=== PATIENT | female | born 1980 | race Caucasian/White ===

== ENCOUNTER 2016-11-09 09:12 | Emergency (ER) | payer MEDICAID ==
[~2016-11-09] VITALS: Ht 165.1 cm; Wt 82.0 kg
[2016-11-09 09:15] VITALS: BP 127/90
== END 2016-11-09 10:15 | disposition home or self-care (01) ==
LOC: ED 09:40
DX: K02.9 Dental caries, unspecified (principal)
CPT/HCPCS: 99283

== ENCOUNTER 2016-12-31 17:37 | Emergency (ER) | payer MEDICAID ==
[~2016-12-31] VITALS: Ht 165.1 cm; Wt 84.9 kg
[2016-12-31] MEDS ORDERED: SODIUM CHLORIDE FLUSH 10ML SYR IVF ONE (18:30)
[2016-12-31] MEDS ORDERED: ONDANSETRON 2MG/ML, 2ML IVPush ONE ×2 (18:30→19:30)
[2016-12-31] MEDS ORDERED: FAMOTIDINE 20 MG/2 ML IVP ONE (18:30)
[2016-12-31] MEDS ORDERED: SODIUM CHLORIDE 0.9% 1,000ML IVBOLUS ONE ×2 (18:30→20:00)
[2016-12-31] MEDS ORDERED: FAMOTIDINE 20 MG/2 ML ONE (18:36)
[2016-12-31] MEDS ORDERED: ONDANSETRON 2MG/ML, 2ML ONE ×2 (18:36→19:22)
[2016-12-31 18:39] LABS: HEMOGLOBIN 15.3 g/dL (11.7-16.4); WHITE BLOOD COUNT 10.6 x10^3/uL (3.4-10)
[2016-12-31 18:49] LABS: ASPARTATE AMINO TRANSFERASE 56 U/L (15-37); BLOOD UREA NITROGEN 6 mg/dL (7-18)
[2016-12-31] MEDS ORDERED: HYDROmorphone 1 MG/ML, 1ML ONE ×2 (19:22→20:56)
[2016-12-31] MEDS: HYDROmorphone 1 MG/ML, 1ML IVPush PRN ×2 (19:37→21:00)
[2016-12-31] MEDS ORDERED: PROMETHAZINE 25 MG/ML, 1ML IM ONE (20:00)
[2016-12-31] MEDS ORDERED: PANTOPRAZOLE 40 MG IV IVPush ONE (20:00)
[2016-12-31] MEDS ORDERED: PROMETHAZINE 25 MG/ML, 1ML ONE (20:09)
[2016-12-31] MEDS ORDERED: PANTOPRAZOLE 40 MG IV ONE (20:09)
[2016-12-31 22:04] VITALS: BP 118/82
== END 2016-12-31 22:39 | disposition home or self-care (01) ==
LOC: ED 18:24
DX: K29.20 Alcoholic gastritis without bleeding (principal); F17.200 Nicotine dependence, unspecified, uncomplicated; Z90.49 Acquired absence of other specified parts of digestive tract; Z88.6 Allergy status to analgesic agent; Z88.5 Allergy status to narcotic agent
CPT/HCPCS: 36415; 80053; 81001; 83690; 84703; 85025; 93005; 96365; 96366; 96372; 96375; 96376; 99285; C9113; J1170; J2405; J2550; J7030; S0028

== ENCOUNTER 2017-04-23 12:21 | Emergency (ER) | payer MEDICAID ==
[~2017-04-23] VITALS: Ht 165.1 cm; Wt 80.4 kg
[2017-04-23 12:24] VITALS: BP 135/85
[2017-04-23] MEDS ORDERED: HYDROcodone/APAP 5/325 TABLET PO ONE (13:30)
[2017-04-23] MEDS ORDERED: HYDROcodone/APAP 5/325 TABLET ONE (13:33)
== END 2017-04-23 14:04 | disposition home or self-care (01) ==
LOC: ED 14:00
DX: S20.212A Contusion of left front wall of thorax, initial encounter (principal); W22.8XXA Striking against or struck by other objects, initial encounter; Y93.01 Activity, walking, marching and hiking; Y92.89 Other specified places as the place of occurrence of the external cause; Y99.8 Other external cause status
CPT/HCPCS: 71020; 99284

== ENCOUNTER 2017-05-17 17:48 | Emergency (ER) | payer MEDICAID | END 2017-05-17 18:51 | LOC: ED 18:45 | DX: R10.9 Unspecified abdominal pain (principal); Z53.21 Procedure and treatment not carried out due to patient leaving prior to being seen by health care provider ==

== ENCOUNTER 2017-10-06 16:42 | Inpatient (IN) | payer MEDICAID ==
[~2017-10-06] VITALS: Ht 165.1 cm; Wt 85.8 kg
[~2017-10-06 16:42] MED LIST: OMEP-110 PO
[2017-10-06 18:04] LABS: MEAN CORPUSCULAR HEMOGLOBIN 36.1 pg (27.0-34.8); MEAN CORPUSCULAR VOLUME 105.9 fL (80-100); MEAN PLATELET VOLUME 7.6 fL (7.4-10.4); PLATELET COUNT 335 x10^3/uL (130-400); RED BLOOD COUNT 3.21 x10^6/uL (3.82-5.3)
[2017-10-06 18:15] LABS: ALANINE AMINOTRANSFERASE 36 U/L (12-78); ALBUMIN 1.7 g/dL (3.4-5.0); ANION GAP 5 mmol/L (5-15); CALCIUM 7.8 mg/dL (8.5-10.1); CHLORIDE 100 mmol/L (98-107); CREATININE 0.66 mg/dL (0.55-1.02)
[2017-10-06 18:20] LABS: ALKALINE PHOSPHATASE 297 U/L (45-117); BILIRUBIN,TOTAL 13.9 mg/dL (0.2-1.0); TOTAL PROTEIN 7.5 g/dL (6.4-8.2)
[2017-10-06 18:27] LABS: MD YES
[2017-10-06 18:30] LABS: BAND#(MANUAL) 6.53 x10^3/uL; BANDS%(MANUAL) 24 % (0-7); EOS#(MANUAL) 0.27 x10^3/uL (0.0-0.4); EOS% (MANUAL) 1 % (1-7); LYMPH#(MANUAL) 1.09 x10^3/uL (1-3.4); LYMPHS% (MANUAL) 4 % (22-44); MONOS#(MANUAL) 1.63 x10^3/uL (0.3-2.7); MONOS% (MANUAL) 6 % (2-9); SEG#(MANUAL) 17.68 x10^3/uL (1.8-6.8); SEGS% (MANUAL) 65 % (42-75)
[2017-10-06 18:32] LABS: POLYCHROMASIA 1+
[2017-10-06 18:33] LABS: TARGET CELLS 1+
[2017-10-06 18:34] LABS: TOXIC GRAN 1+
[2017-10-06 18:35] LABS: <PLATELET ESTIMATE> ADEQUATE; <PLT MORPHOLOGY> NORMAL PLT MORPH
[2017-10-06] MEDS ORDERED: OMNIPAQUE 350 MG/ML, 100ML BOTTLE ONE (19:46)
[2017-10-06] MEDS ORDERED: PROMETHAZINE 25 MG/ML, 1ML ONE (20:00)
[2017-10-06] MEDS ORDERED: SODIUM CHLORIDE 0.9% 1,000ML IVBOLUS ONE ×2 (20:00→21:30)
[2017-10-06] MEDS ORDERED: HYDROmorphone 2 MG/ML, 1ML ONE ×2 (20:00→21:24)
[2017-10-06] MEDS ORDERED: SODIUM CHLORIDE FLUSH 10ML SYR IVF ONE (20:00)
[2017-10-06] MEDS ORDERED: PROMETHAZINE 25 MG/ML, 1ML IM ONE (20:00)
[2017-10-06] MEDS: HYDROmorphone 1 MG/ML, 1ML IVPush PRN ×2 (20:12→21:38)
[2017-10-06 20:57] LABS: CULTURE INDICATED? YES; MICROSCOPIC INDICATED
[2017-10-06] MEDS ORDERED: PIPERACILLIN/TAZO/PMX 3.375GM 50 ML IVPB ONE (21:30)
[2017-10-06] MEDS ORDERED: PIPERACILLIN/TAZO/PMX 3.375GM 50 ML ONE (21:42)
[2017-10-06] MEDS ORDERED: SODIUM CHLORIDE 0.9% 1,000 ML IV ONE (22:03)
[2017-10-06 22:23] LABS: ACETAMINOPHEN < 2 mcg/mL (10-30)
[2017-10-06] MEDS ORDERED: SODIUM CHLORIDE FLUSH 10ML SYR IVF PRN (22:30)
[2017-10-06 22:48] LABS: INTERNATIONAL NORMALIZED RATIO 1.89 (0.93-1.1); PROTHROMBIN TIME 19.4 Seconds (9.6-11.5)
[2017-10-06] MEDS ORDERED: ONDANSETRON 2MG/ML, 2ML IVPush PRN (23:30)
[2017-10-06] MEDS ORDERED: BISACODYL 10 MG SUPP PR PRN (23:30)
[2017-10-06] MEDS ORDERED: POLYETHYLENE GLYCOL 17 GM PACKET PO PRN (23:30)
[2017-10-06 23:50] LABS: BILIRUBIN,INDIRECT 2.2 mg/dL (0.0-2.0)
[2017-10-07 00:02] LABS: BILIRUBIN, DIRECT 10.8 mg/dL (0.1-0.2)
[2017-10-07 00:28] VITALS: BP 115/68
[2017-10-07 01:05] VITALS: BP 106/69
[2017-10-07] MEDS: CEFTRIAXONE PMX 2GM/50ML 50 ML IV SCH (03:49)
[2017-10-07] MEDS: SODIUM CHLORIDE FLUSH 10ML SYR IVF SCH ×3 (03:57→21:35)
[2017-10-07] MEDS ORDERED: ONDANSETRON ODT 4 MG PO PRN (04:00)
[2017-10-07] MEDS ORDERED: HYDROmorphone 1 MG/ML, 1ML IM PRN (04:30)
[2017-10-07] MEDS ORDERED: HYDROmorphone 2 MG/ML, 1ML ONE ×4 (04:35→20:46)
[2017-10-07] MEDS: D5%-0.45% NACL 1,000 ML IV SCH ×2 (04:43→17:50)
[2017-10-07] MEDS: PROMETHAZINE 25 MG/ML, 1ML IM PRN ×3 (04:44→20:17)
[2017-10-07] MEDS: HYDROmorphone 1 MG/ML, 1ML IV PRN ×4 (04:48→20:49)
[2017-10-07 06:09] LABS: INTERNATIONAL NORMALIZED RATIO 2.07 (0.93-1.1); PROTHROMBIN TIME 21.2 Seconds (9.6-11.5)
[2017-10-07 06:17] LABS: CALCIUM 7.1 mg/dL (8.5-10.1); CHLORIDE 102 mmol/L (98-107)
[2017-10-07 06:20] LABS: MEAN CORPUSCULAR HEMOGLOBIN 36.1 pg (27.0-34.8); MEAN CORPUSCULAR HGB CONC 34.1 g/dL (32.4-35.8); MEAN CORPUSCULAR VOLUME 105.7 fL (80-100); RED BLOOD COUNT 2.79 x10^6/uL (3.82-5.3); RED CELL DISTRIBUTION WIDTH 18.9 % (9.6-15.2)
[2017-10-07 06:21] LABS: MEAN PLATELET VOLUME 8.6 fL (7.4-10.4); PLATELET COUNT 265 x10^3/uL (130-400)
[2017-10-07 06:23] LABS: ALANINE AMINOTRANSFERASE 30 U/L (12-78); ALBUMIN 1.5 g/dL (3.4-5.0); ALKALINE PHOSPHATASE 242 U/L (45-117); ANION GAP 8 mmol/L (5-15); BILIRUBIN,TOTAL 12.2 mg/dL (0.2-1.0); CREATININE 0.53 mg/dL (0.55-1.02); TOTAL PROTEIN 6.5 g/dL (6.4-8.2)
[2017-10-07 07:04] LABS: MD YES
[2017-10-07 07:05] LABS: BASOS#(MANUAL) 0.29 x10^3/uL (0-0.1); BASOS% (MANUAL) 1 % (0-1); EOS#(MANUAL) 0.29 x10^3/uL (0.0-0.4); EOS% (MANUAL) 1 % (1-7); MONOS#(MANUAL) 1.44 x10^3/uL (0.3-2.7); MONOS% (MANUAL) 5 % (2-9)
[2017-10-07 07:06] LABS: BAND#(MANUAL) 4.88 x10^3/uL; BANDS%(MANUAL) 17 % (0-7); LYMPH#(MANUAL) 0.57 x10^3/uL (1-3.4); LYMPHS% (MANUAL) 2 % (22-44); METAMYELOCYTES# (MANUAL) 0.29 x10^3/uL (0-0); METAMYELOCYTES% (MANUAL) 1 % (0-1); POLYCHROMASIA 1+; SEG#(MANUAL) 20.95 x10^3/uL (1.8-6.8); SEGS% (MANUAL) 73 % (42-75)
[2017-10-07 07:07] LABS: ANISOCYTOSIS 1+; TOXIC GRAN 1+
[2017-10-07 07:08] LABS: <PLATELET ESTIMATE> ADEQUATE; <PLT MORPHOLOGY> NORMAL PLT MORPH
[2017-10-07 08:30] VITALS: BP 99/62
[2017-10-07] MEDS: FOLIC ACID 1 MG TABLET PO SCH (09:56)
[2017-10-07] MEDS: SENNA/DOCUSATE TABLET PO SCH (09:57)
[2017-10-07 15:48] VITALS: BP 103/58
[2017-10-07 17:30] LABS: MEAN CORPUSCULAR HEMOGLOBIN 35.9 pg (27.0-34.8); MEAN CORPUSCULAR HGB CONC 33.7 g/dL (32.4-35.8); MEAN CORPUSCULAR VOLUME 106.6 fL (80-100); MEAN PLATELET VOLUME 8.4 fL (7.4-10.4); PLATELET COUNT 310 x10^3/uL (130-400); RED BLOOD COUNT 2.84 x10^6/uL (3.82-5.3); RED CELL DISTRIBUTION WIDTH 19.4 % (9.6-15.2)
[2017-10-07 17:50] LABS: MD YES
[2017-10-07 17:53] LABS: ANISOCYTOSIS 1+; BANDS%(MANUAL) 20 % (0-7); EOS#(MANUAL) 0.26 x10^3/uL (0.0-0.4); EOS% (MANUAL) 1 % (1-7); LYMPH#(MANUAL) 1.02 x10^3/uL (1-3.4); LYMPHS% (MANUAL) 4 % (22-44); METAMYELOCYTES# (MANUAL) 0.26 x10^3/uL (0-0); METAMYELOCYTES% (MANUAL) 1 % (0-1); MONOS#(MANUAL) 0.77 x10^3/uL (0.3-2.7); MONOS% (MANUAL) 3 % (2-9); MYELOCYTES# (MANUAL) 0.26 x10^3/uL (0-0); MYELOCYTES% (MANUAL) 1 % (0-0); SEG#(MANUAL) 17.85 x10^3/uL (1.8-6.8); SEGS% (MANUAL) 70 % (42-75)
[2017-10-07 17:54] LABS: POLYCHROMASIA 1+; TOXIC GRAN 1+
[2017-10-07 17:55] LABS: <PLATELET ESTIMATE> ADEQUATE; <PLT MORPHOLOGY> NORMAL PLT MORPH; TARGET CELLS 1+
[2017-10-07 18:52] LABS: AMPHETAMINE SCREEN, URINE Negative (Negative); BARBITURATE SCREEN, URINE Negative (Negative); BENZODIAZEPINE SCREEN, URINE Negative (Negative); CANNABINOID SCREEN, URINE Negative (Negative); COCAINE SCREEN, URINE Negative (Negative); METHADONE SCREEN, URINE Negative (Negative); OPIATE SCREEN, URINE Positive (Negative)
[2017-10-07 19:06] VITALS: BP 102/68
[2017-10-07] MEDS: AZITHROMYCIN 500 MG in SODIUM CHLORIDE 0.9% 250 ML IV SCH (19:31)
[2017-10-08 00:57] VITALS: BP 95/61
[2017-10-08] MEDS ORDERED: HYDROmorphone 2 MG/ML, 1ML ONE ×5 (02:40→22:10)
[2017-10-08] MEDS: CEFTRIAXONE PMX 2GM/50ML 50 ML IV SCH (02:51)
[2017-10-08] MEDS: HYDROmorphone 1 MG/ML, 1ML IV PRN ×5 (02:51→22:15)
[2017-10-08 05:39] LABS: MEAN CORPUSCULAR HEMOGLOBIN 36.2 pg (27.0-34.8); MEAN CORPUSCULAR VOLUME 106.6 fL (80-100); MEAN PLATELET VOLUME 7.7 fL (7.4-10.4); PLATELET COUNT 305 x10^3/uL (130-400); RED CELL DISTRIBUTION WIDTH 18.6 % (9.6-15.2)
[2017-10-08 05:50] LABS: ALANINE AMINOTRANSFERASE 34 U/L (12-78); ALBUMIN 1.3 g/dL (3.4-5.0); ANION GAP 7 mmol/L (5-15); CHLORIDE 104 mmol/L (98-107); CREATININE 0.44 mg/dL (0.55-1.02)
[2017-10-08 05:52] LABS: ALKALINE PHOSPHATASE 231 U/L (45-117); BILIRUBIN,TOTAL 10.7 mg/dL (0.2-1.0)
[2017-10-08 06:05] LABS: MD YES
[2017-10-08 06:06] LABS: LYMPH#(MANUAL) 1.35 x10^3/uL (1-3.4); LYMPHS% (MANUAL) 5 % (22-44); MONOS#(MANUAL) 0.81 x10^3/uL (0.3-2.7); MONOS% (MANUAL) 3 % (2-9)
[2017-10-08 06:08] LABS: BAND#(MANUAL) 3.78 x10^3/uL; BANDS%(MANUAL) 14 % (0-7); SEG#(MANUAL) 21.06 x10^3/uL (1.8-6.8); SEGS% (MANUAL) 78 % (42-75)
[2017-10-08 06:09] LABS: ANISOCYTOSIS 1+; POLYCHROMASIA 1+; TOXIC GRAN 1+
[2017-10-08 06:10] LABS: <PLATELET ESTIMATE> ADEQUATE; <PLT MORPHOLOGY> NORMAL PLT MORPH
[2017-10-08 06:48] LABS: INTERNATIONAL NORMALIZED RATIO 2.29 (0.93-1.1); PROTHROMBIN TIME 23.4 Seconds (9.6-11.5)
[2017-10-08] MEDS: D5%-0.45% NACL 1,000 ML IV SCH ×2 (06:54→20:55)
[2017-10-08 08:12] VITALS: BP 100/64
[2017-10-08] MEDS: SODIUM CHLORIDE FLUSH 10ML SYR IVF SCH ×2 (08:26→21:00)
[2017-10-08] MEDS: SENNA/DOCUSATE TABLET PO SCH (08:26)
[2017-10-08] MEDS: FOLIC ACID 1 MG TABLET PO SCH (08:26)
[2017-10-08] MEDS: PROMETHAZINE 25 MG/ML, 1ML IM PRN (08:27)
[2017-10-08] MEDS: prednisOLONE 15 MG/5 ML ORAL SOLN PO SCH (10:38)
[2017-10-08 15:50] VITALS: BP 101/65
[2017-10-08] MEDS: AZITHROMYCIN 500 MG in SODIUM CHLORIDE 0.9% 250 ML IV SCH (20:56)
[2017-10-08 21:01] VITALS: BP 99/63
[2017-10-09] MEDS ORDERED: HYDROmorphone 2 MG/ML, 1ML ONE ×5 (02:18→21:34)
[2017-10-09] MEDS: HYDROmorphone 1 MG/ML, 1ML IV PRN ×5 (02:19→21:42)
[2017-10-09] MEDS: CEFTRIAXONE PMX 2GM/50ML 50 ML IV SCH (02:20)
[2017-10-09 02:24] VITALS: BP 94/63
[2017-10-09 05:25] LABS: MEAN CORPUSCULAR HEMOGLOBIN 35.7 pg (27.0-34.8); MEAN CORPUSCULAR HGB CONC 33.9 g/dL (32.4-35.8); MEAN CORPUSCULAR VOLUME 105.1 fL (80-100); MEAN PLATELET VOLUME 7.7 fL (7.4-10.4); PLATELET COUNT 349 x10^3/uL (130-400); RED BLOOD COUNT 2.97 x10^6/uL (3.82-5.3); RED CELL DISTRIBUTION WIDTH 18.6 % (9.6-15.2)
[2017-10-09 05:34] LABS: ALBUMIN 1.3 g/dL (3.4-5.0); ANION GAP 6 mmol/L (5-15); CALCIUM 6.9 mg/dL (8.5-10.1); CHLORIDE 107 mmol/L (98-107)
[2017-10-09 05:39] LABS: ALANINE AMINOTRANSFERASE 36 U/L (12-78); ALKALINE PHOSPHATASE 245 U/L (45-117); BILIRUBIN,TOTAL 10.1 mg/dL (0.2-1.0); TOTAL PROTEIN 6.1 g/dL (6.4-8.2)
[2017-10-09 05:47] LABS: MD YES
[2017-10-09 05:48] LABS: BAND#(MANUAL) 5.36 x10^3/uL; BANDS%(MANUAL) 14 % (0-7); LYMPH#(MANUAL) 3.45 x10^3/uL (1-3.4); LYMPHS% (MANUAL) 9 % (22-44); MONOS#(MANUAL) 1.15 x10^3/uL (0.3-2.7); MONOS% (MANUAL) 3 % (2-9); MYELOCYTES# (MANUAL) 0.77 x10^3/uL (0-0); MYELOCYTES% (MANUAL) 2 % (0-0); NRBC % (MANUAL) 1 % (0-1); SEG#(MANUAL) 27.58 x10^3/uL (1.8-6.8); SEGS% (MANUAL) 72 % (42-75)
[2017-10-09 05:49] LABS: ANISOCYTOSIS 1+; POLYCHROMASIA 1+
[2017-10-09 05:50] LABS: <PLATELET ESTIMATE> ADEQUATE; <PLT MORPHOLOGY> NORMAL PLT MORPH
[2017-10-09 07:15] LABS: INTERNATIONAL NORMALIZED RATIO 2.32 (0.93-1.1); PROTHROMBIN TIME 23.7 Seconds (9.6-11.5)
[2017-10-09 07:28] VITALS: BP 99/62
[2017-10-09] MEDS: PROMETHAZINE 25 MG/ML, 1ML IM PRN ×2 (09:12→17:36)
[2017-10-09 09:16] VITALS: BP 111/78
[2017-10-09] MEDS: SENNA/DOCUSATE TABLET PO SCH (09:21)
[2017-10-09] MEDS: FOLIC ACID 1 MG TABLET PO SCH (09:21)
[2017-10-09] MEDS: prednisOLONE 15 MG/5 ML ORAL SOLN PO SCH (09:22)
[2017-10-09] MEDS: SODIUM CHLORIDE FLUSH 10ML SYR IVF SCH ×2 (09:22→21:41)
[2017-10-09] MEDS: DOXYCYCLINE 100MG CAP PO SCH ×2 (11:12→21:40)
[2017-10-09] MEDS: OXYcodone IR 5MG TABLET PO PRN (11:12)
[2017-10-09 13:34] VITALS: BP 105/70
[2017-10-09 19:40] VITALS: BP 105/69
[2017-10-10 00:51] VITALS: BP 94/60
[2017-10-10] MEDS ORDERED: HYDROmorphone 2 MG/ML, 1ML ONE ×4 (02:15→20:52)
[2017-10-10] MEDS: HYDROmorphone 1 MG/ML, 1ML IV PRN ×4 (02:18→20:57)
[2017-10-10] MEDS: CEFTRIAXONE PMX 2GM/50ML 50 ML IV SCH (02:18)
[2017-10-10 04:42] LABS: MEAN CORPUSCULAR HEMOGLOBIN 35.5 pg (27.0-34.8); MEAN CORPUSCULAR HGB CONC 33.5 g/dL (32.4-35.8); MEAN CORPUSCULAR VOLUME 106.1 fL (80-100); MEAN PLATELET VOLUME 7.4 fL (7.4-10.4); PLATELET COUNT 398 x10^3/uL (130-400); RED BLOOD COUNT 3.02 x10^6/uL (3.82-5.3); RED CELL DISTRIBUTION WIDTH 18.9 % (9.6-15.2)
[2017-10-10 04:50] LABS: ALBUMIN 1.4 g/dL (3.4-5.0); ANION GAP 5 mmol/L (5-15); CALCIUM 7.4 mg/dL (8.5-10.1); CHLORIDE 107 mmol/L (98-107)
[2017-10-10 05:02] LABS: ALANINE AMINOTRANSFERASE 43 U/L (12-78); ALKALINE PHOSPHATASE 247 U/L (45-117); BILIRUBIN,TOTAL 9.7 mg/dL (0.2-1.0); CREATININE 0.55 mg/dL (0.55-1.02); TOTAL PROTEIN 6.5 g/dL (6.4-8.2)
[2017-10-10 05:09] LABS: MD YES
[2017-10-10 05:11] LABS: BAND#(MANUAL) 2.78 x10^3/uL; BANDS%(MANUAL) 8 % (0-7); LYMPH#(MANUAL) 1.74 x10^3/uL (1-3.4); LYMPHS% (MANUAL) 5 % (22-44); METAMYELOCYTES# (MANUAL) 0.35 x10^3/uL (0-0); METAMYELOCYTES% (MANUAL) 1 % (0-1); MONOS#(MANUAL) 0.69 x10^3/uL (0.3-2.7); MONOS% (MANUAL) 2 % (2-9); SEGS% (MANUAL) 84 % (42-75)
[2017-10-10 05:12] LABS: ANISOCYTOSIS 1+; POLYCHROMASIA 1+; TARGET CELLS 1+
[2017-10-10 05:13] LABS: <PLATELET ESTIMATE> ADEQUATE; <PLT MORPHOLOGY> NORMAL PLT MORPH
[2017-10-10 07:42] VITALS: BP 100/66
[2017-10-10] MEDS: OXYcodone IR 5MG TABLET PO PRN ×2 (08:37→14:43)
[2017-10-10] MEDS: FOLIC ACID 1 MG TABLET PO SCH (08:38)
[2017-10-10] MEDS: prednisOLONE 15 MG/5 ML ORAL SOLN PO SCH (08:38)
[2017-10-10] MEDS: SENNA/DOCUSATE TABLET PO SCH (08:38)
[2017-10-10] MEDS: AMOXICILLIN/CLAV 875-125MG TABLET PO SCH ×2 (08:38→20:41)
[2017-10-10] MEDS: SODIUM CHLORIDE FLUSH 10ML SYR IVF SCH ×2 (08:38→20:44)
[2017-10-10] MEDS: DOXYCYCLINE 100MG CAP PO SCH ×2 (08:38→20:41)
[2017-10-10 09:33] LABS: INTERNATIONAL NORMALIZED RATIO 1.92 (0.93-1.1); PROTHROMBIN TIME 19.7 Seconds (9.6-11.5)
[2017-10-10] MEDS ORDERED: AMOX1TAB12 PO (12:03)
[2017-10-10] MEDS ORDERED: PRED15SO3 PO (12:03)
[2017-10-10] MEDS ORDERED: FOLI-17 PO (12:03)
[2017-10-10] MEDS ORDERED: DOXY100C2 PO (12:03)
[2017-10-10 12:37] VITALS: BP 103/68
[2017-10-10] MEDS ORDERED: OXYcodone IR 5MG TABLET PO ONE (14:30)
[2017-10-10 16:31] LABS: ANA SCREEN NEGATIVE (Negative)
[2017-10-10 19:21] VITALS: BP 108/67
[2017-10-11] MEDS: OXYcodone IR 5MG TABLET PO PRN ×2 (01:56→08:13)
[2017-10-11 01:57] VITALS: BP 97/67
[2017-10-11 05:35] LABS: MEAN CORPUSCULAR HEMOGLOBIN 36.7 pg (27.0-34.8); MEAN CORPUSCULAR HGB CONC 34.7 g/dL (32.4-35.8); MEAN CORPUSCULAR VOLUME 105.8 fL (80-100); MEAN PLATELET VOLUME 7.4 fL (7.4-10.4); PLATELET COUNT 344 x10^3/uL (130-400); RED BLOOD COUNT 2.76 x10^6/uL (3.82-5.3); RED CELL DISTRIBUTION WIDTH 18.5 % (9.6-15.2)
[2017-10-11 05:38] LABS: INTERNATIONAL NORMALIZED RATIO 1.96 (0.93-1.1); PROTHROMBIN TIME 20.1 Seconds (9.6-11.5)
[2017-10-11 05:41] LABS: ALBUMIN 1.3 g/dL (3.4-5.0); ANION GAP 6 mmol/L (5-15); CALCIUM 7.4 mg/dL (8.5-10.1); CHLORIDE 107 mmol/L (98-107)
[2017-10-11 05:45] LABS: ALANINE AMINOTRANSFERASE 49 U/L (12-78); ALKALINE PHOSPHATASE 228 U/L (45-117); BILIRUBIN,TOTAL 8.9 mg/dL (0.2-1.0); CREATININE 0.48 mg/dL (0.55-1.02)
[2017-10-11 05:56] LABS: MD YES
[2017-10-11 06:00] LABS: ANISOCYTOSIS 1+; BAND#(MANUAL) 7.29 x10^3/uL; BANDS%(MANUAL) 21 % (0-7); EOS#(MANUAL) 0.35 x10^3/uL (0.0-0.4); EOS% (MANUAL) 1 % (1-7); LYMPH#(MANUAL) 2.08 x10^3/uL (1-3.4); LYMPHS% (MANUAL) 6 % (22-44); MONOS#(MANUAL) 0.69 x10^3/uL (0.3-2.7); MONOS% (MANUAL) 2 % (2-9); POLYCHROMASIA 1+; SEG#(MANUAL) 24.29 x10^3/uL (1.8-6.8); SEGS% (MANUAL) 70 % (42-75)
[2017-10-11] MEDS ORDERED: LEVOTHYROXINE 25 MCG TABLET PO SCH (06:00)
[2017-10-11 06:05] LABS: <PLATELET ESTIMATE> ADEQUATE; <PLT MORPHOLOGY> NORMAL PLT MORPH
[2017-10-11 07:49] VITALS: BP 109/72
[2017-10-11] MEDS: prednisOLONE 15 MG/5 ML ORAL SOLN PO SCH (08:11)
[2017-10-11] MEDS: SODIUM CHLORIDE FLUSH 10ML SYR IVF SCH (08:11)
[2017-10-11] MEDS: SENNA/DOCUSATE TABLET PO SCH (08:12)
[2017-10-11] MEDS: DOXYCYCLINE 100MG CAP PO SCH (08:13)
[2017-10-11] MEDS: AMOXICILLIN/CLAV 875-125MG TABLET PO SCH (08:13)
[2017-10-11] MEDS: FOLIC ACID 1 MG TABLET PO SCH (08:13)
[2017-10-11] MEDS ORDERED: OXYC5TAB3 PO (10:24)
== END 2017-10-11 10:51 | disposition home or self-care (01) | DRG 871 ==
LOC: ED 20:08 → EDIP 22:03 → 3NE 23:12
PROVIDERS: ADMIT Internal Medicine; ATTEND Internal Medicine
DX: A41.9 Sepsis, unspecified organism (principal); E43 Unspecified severe protein-calorie malnutrition; K72.00 Acute and subacute hepatic failure without coma; J18.9 Pneumonia, unspecified organism; D68.9 Coagulation defect, unspecified; E87.1 Hypo-osmolality and hyponatremia; K70.11 Alcoholic hepatitis with ascites; M35.00 Sjogren syndrome, unspecified; N39.0 Urinary tract infection, site not specified; D50.9 Iron deficiency anemia, unspecified; F10.10 Alcohol abuse, uncomplicated; D53.9 Nutritional anemia, unspecified; D75.89 Other specified diseases of blood and blood-forming organs; E03.9 Hypothyroidism, unspecified; K27.9 Peptic ulcer, site unspecified, unspecified as acute or chronic, without hemorrhage or perforation; K59.00 Constipation, unspecified; K76.0 Fatty (change of) liver, not elsewhere classified; N80.9 Endometriosis, unspecified; Z68.31 Body mass index [BMI] 31.0-31.9, adult
CPT/HCPCS: 36415; 71045; 74177; 76700; 80053; 80307; 81001; 82140; 82175; 82247; 82248; 82300; 82607; 82746; 83605; 83655; 83690; 83825; 83880; 84145; 84439; 84443; 84703; 85025; 85610; 85730; 86038; 86705; 86706; 86708; 86709; 86803; 87040; 87086; 87340; 87806; 96361; 96372; 96374; J0456; J0696; J1170; J2543; J2550; Q9967; G0475; J7030; J7050; J7510

== ENCOUNTER 2018-02-10 15:07 | Emergency (ER) | payer MEDICAID ==
[~2018-02-10] VITALS: Ht 165.1 cm; Wt 78.8 kg
[~2018-02-10 15:07] MED LIST changes: +AMOX1TAB12 PO; +DOXY100C2 PO; +FOLI-17 PO; +OXYC5TAB3 PO; +PRED15SO3 PO
[2018-02-10] MEDS ORDERED: OXYcodone/APAP 5/325MG TABLET PO ONE (15:30)
[2018-02-10] MEDS ORDERED: ONDANSETRON ODT 4 MG PO ONE (15:30)
[2018-02-10] MEDS ORDERED: ONDANSETRON ODT 4 MG ONE (15:38)
[2018-02-10] MEDS ORDERED: OXYcodone/APAP 5/325MG TABLET ONE (15:39)
[2018-02-10 15:43] LABS: BASOPHILS # (AUTO) 0.03 x10^3/uL (0-0.1); BASOPHILS % (AUTO) 1 % (0-1); EOSINOPHILS # (AUTO) 0.15 x10^3/uL (0-0.4); EOSINOPHILS % (AUTO) 3 % (1-7); LYMPHOCYTES # (AUTO) 1.36 x10^3/uL (1-3.4); LYMPHOCYTES % (AUTO) 22 % (22-44); MD NO; MEAN CORPUSCULAR HEMOGLOBIN 28.2 pg (27.0-34.8); MEAN CORPUSCULAR HGB CONC 33.4 g/dL (32.4-35.8); MEAN CORPUSCULAR VOLUME 84.4 fL (80-100); MEAN PLATELET VOLUME 7.4 fL (7.4-10.4); MONOCYTES # (AUTO) 0.57 x10^3/uL (0.2-0.8); MONOCYTES % (AUTO) 9 % (2-9); NEUTROPHILS # (AUTO) 3.95 x10^3/uL (1.8-6.8); NEUTROPHILS % (AUTO) 65 % (42-75); PLATELET COUNT 143 x10^3/uL (130-400); RED BLOOD COUNT 3.67 x10^6/uL (3.82-5.3); RED CELL DISTRIBUTION WIDTH 17.3 % (9.6-15.2)
[2018-02-10 15:52] LABS: INTERNATIONAL NORMALIZED RATIO 1.4 (0.93-1.1); PROTHROMBIN TIME 14.5 Seconds (9.6-11.5)
[2018-02-10 15:56] LABS: ALBUMIN 2.4 g/dL (3.4-5.0); ANION GAP 8 mmol/L (5-15); CALCIUM 8.6 mg/dL (8.5-10.1); CHLORIDE 112 mmol/L (98-107)
[2018-02-10 16:01] LABS: ALANINE AMINOTRANSFERASE 10 U/L (12-78); ALKALINE PHOSPHATASE 96 U/L (45-117); BILIRUBIN,TOTAL 1.5 mg/dL (0.2-1.0); CREATININE 0.59 mg/dL (0.55-1.02); TOTAL PROTEIN 7.5 g/dL (6.4-8.2)
[2018-02-10 16:51] LABS: CULTURE INDICATED? YES; MICROSCOPIC INDICATED
[2018-02-10] MEDS ORDERED: HYDROmorphone 2 MG/ML, 1ML IM ONE (17:30)
[2018-02-10 17:55] VITALS: BP 96/58
[2018-02-13 14:59] LABS: ANA SCREEN POSITIVE (Negative); ANTI-NUCLEAR ANTIBODY PATTERN SPECKLED
== END 2018-02-10 17:57 | disposition home or self-care (01) ==
LOC: ED 16:14
DX: G89.29 Other chronic pain (principal); N30.00 Acute cystitis without hematuria; M79.1 Myalgia; R79.1 Abnormal coagulation profile; Z88.5 Allergy status to narcotic agent; Z88.8 Allergy status to other drugs, medicaments and biological substances
CPT/HCPCS: 36415; 80053; 81001; 83690; 84703; 85025; 85610; 85651; 86038; 86039; 87077; 87086; 87186; 99284; Q0162

== ENCOUNTER 2018-09-23 12:40 | Inpatient (IN) | payer MEDICAID ==
[~2018-09-23] VITALS: Ht 165.1 cm; Wt 79.0 kg
[2018-09-23] MEDS ORDERED: ONDANSETRON ODT 4 MG PO ONE (13:00)
[2018-09-23] MEDS ORDERED: THIAMINE 100MG TABLET PO ONE (13:00)
--- NOTE | 2018-09-23 13:06 | NUR ---
CALLED FOR ROOM, NO ANSWER.
--- NOTE | 2018-09-23 13:29 | NUR ---
PT TO ROOM FROM LOBBY, CONTACT WITH PT. REQUEST PT TO CHANGE IN TO [facility]. PT TO BE MEDICATED ORDERED.
[2018-09-23] MEDS ORDERED: THIAMINE 100MG TABLET ONE (13:30)
[2018-09-23] MEDS ORDERED: ONDANSETRON ODT 4 MG ONE (13:31)
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
[2018-09-23] MEDS ORDERED: LORA2TAB99 PO (13:37)
[2018-09-23] MEDS ORDERED: CEPH-368 PO (13:44)
[2018-09-23] MEDS ORDERED: FENT-58 TP (13:45)
[2018-09-23] MEDS ORDERED: LORazepam 2 MG/ML, 1ML ONE (13:56)
[2018-09-23] MEDS ORDERED: ONDANSETRON 2MG/ML, 2ML ONE (13:56)
--- NOTE | 2018-09-23 13:56 | NUR ---
dr grier requested records from [facility]. Attempted to have pt sign release for medical records but pt refuses to sign release. dr grier made aware.
[2018-09-23] MEDS ORDERED: ONDANSETRON 2MG/ML, 2ML IVPush ONE (14:00)
[2018-09-23] MEDS: LORazepam 2 MG/ML, 1ML IVPush PRN ×2 (14:00→16:23)
[2018-09-23] MEDS ORDERED: THIAMINE 100 MG in SODIUM CHLORIDE 0.9% 50 ML IVPB ONE (14:00)
[2018-09-23] MEDS ORDERED: SODIUM CHLORIDE 0.9% 1,000ML IVBOLUS ONE (14:00)
--- NOTE | 2018-09-23 14:03 | NUR ---
PT MEDICATED WITH ZOFRAN ORDERED. THIAMINE REQUESTED FROM PHARMACY. PT AMB TO BR, FOR URINE SPECIMAN, GAIT STEADY. PT TO BE MEDICATED WITH ATIVAN UPON RETURN TO ROOM.
[2018-09-23 14:07] LABS: INTERNATIONAL NORMALIZED RATIO 1.18 (0.93-1.1); PROTHROMBIN TIME 12.3 Seconds (9.6-11.5)
[2018-09-23 14:10] LABS: ALANINE AMINOTRANSFERASE 86 U/L (12-78); ALBUMIN 3.4 g/dL (3.4-5.0); ANION GAP 11 mmol/L (5-15); CALCIUM 8.2 mg/dL (8.5-10.1); CHLORIDE 111 mmol/L (98-107); CREATININE 0.84 mg/dL (0.55-1.02)
[2018-09-23 14:12] LABS: ALKALINE PHOSPHATASE 243 U/L (45-117); TOTAL PROTEIN 8.4 g/dL (6.4-8.2)
[2018-09-23 14:13] LABS: ACETAMINOPHEN < 2 mcg/mL (10-30); SALICYLATE LEVEL < 1.7 mg/dL (2.8-20.0)
[2018-09-23 14:22] LABS: BASOPHILS # (AUTO) 0.02 x10^3/uL (0-0.1); BASOPHILS % (AUTO) 0 % (0-1); EOSINOPHILS # (AUTO) 0.04 x10^3/uL (0-0.4); EOSINOPHILS % (AUTO) 1 % (1-7); LYMPHOCYTES # (AUTO) 1.84 x10^3/uL (1-3.4); LYMPHOCYTES % (AUTO) 20 % (22-44); MD NO; MEAN CORPUSCULAR HEMOGLOBIN 30.5 pg (27.0-34.8); MEAN CORPUSCULAR VOLUME 89.6 fL (80-100); MEAN PLATELET VOLUME 7.5 fL (7.4-10.4); MONOCYTES # (AUTO) 0.54 x10^3/uL (0.2-0.8); MONOCYTES % (AUTO) 6 % (2-9); NEUTROPHILS # (AUTO) 6.61 x10^3/uL (1.8-6.8); NEUTROPHILS % (AUTO) 73 % (42-75); PLATELET COUNT 118 x10^3/uL (130-400); RED BLOOD COUNT 4.55 x10^6/uL (3.82-5.3); RED CELL DISTRIBUTION WIDTH 16.8 % (9.6-15.2)
[2018-09-23] MEDS ORDERED: NS + 40MEQ KCL 1,000 ML IV ONE (14:28)
[2018-09-23] MEDS ORDERED: NS + 40MEQ KCL 1,000 ML IV SCH (14:30)
[2018-09-23 14:31] LABS: CULTURE INDICATED? YES; MICROSCOPIC INDICATED
--- NOTE | 2018-09-23 14:37 | NUR ---
PTS NOT IN ROOM. PT ASKING ABOUT TREATMENT PLAN, ADMIT. PT STATES "I'M DEPRESSED" PT ASKED SEVERAL TIMES ABOUT SI. PT DENIES. DR BECKWITH UPDATED. PT ASKING ABOUT ETOH LEVEL, LIVER ENZYME LEVELS. PT GIVEN INFORMATION. PT DOES NOT WANT HER GIVEN THAT INFORMATION. IV NS AND THIAMINE INFUSING WITHOUT REDNESS/SWELLING. U/S TECH AT BEDSIDE. NO NEEDS EXPRESSED AT THIS TIME.
[2018-09-23 14:38] LABS: AMPHETAMINE SCREEN, URINE Negative (Negative); BARBITURATE SCREEN, URINE Negative (Negative); BENZODIAZEPINE SCREEN, URINE Negative (Negative); CANNABINOID SCREEN, URINE Negative (Negative); COCAINE SCREEN, URINE Negative (Negative); METHADONE SCREEN, URINE Negative (Negative); OPIATE SCREEN, URINE Negative (Negative)
[2018-09-23 15:03] LABS: ACETONE, SERUM Negative (Negative)
--- NOTE | 2018-09-23 15:16 | NUR ---
PT REPORTS NAUSEA BETTER. REPORT CALLED TO MYESHA MATUTE. POC DISCUSSED. HOSPITALIST AT BEDSIDE TO [facility] ST[employer].
[2018-09-23] MEDS ORDERED: POTASSIUM CHLORIDE 20 MEQ, MAGNESIUM SULFATE 2 GM, THIAMINE 200 MG, MVI ADULT 10 ML, FO... IV SCH (15:26)
[2018-09-23] MEDS ORDERED: LORazepam 1MG TABLET PO PRN ×2 (15:30)
[2018-09-23] MEDS ORDERED: LABETALOL 5MG/ML, 20ML IVPush PRN (15:30)
[2018-09-23] MEDS ORDERED: LORazepam 2 MG/ML, 1ML IV PRN ×4 (15:30)
[2018-09-23] MEDS ORDERED: hydrALAzine 20 MG/ML, 1ML IVPush PRN (15:30)
[2018-09-23] MEDS ORDERED: PROMETHAZINE 25 MG/ML, 1ML IM PRN (15:30)
[2018-09-23] MEDS ORDERED: POTASSIUM CHLORIDE 40 MEQ in SODIUM CHLORIDE 0.9% 500 ML IV ONE (15:30)
[2018-09-23] MEDS ORDERED: morphine SULFATE 10 MG/ML, 1ML IVPush PRN (15:30)
[2018-09-23] MEDS ORDERED: FENTANYL TP PRN (16:00)
[2018-09-23] MEDS ORDERED: LACTATED RINGERS 1,000 ML IV SCH (16:00)
[2018-09-23 16:17] VITALS: BP 130/83
[2018-09-23] MEDS: CHLORDIAZEPOXIDE 25 MG CAPSULE PO SCH ×2 (17:17→20:49)
[2018-09-23] MEDS: ENOXAPARIN 40 MG/0.4 ML SQ SCH (17:17)
[2018-09-23] MEDS: NICOTINE 7 MG/24 HR PATCH.TD24 TD SCH (17:17)
[2018-09-23] MEDS: POTASSIUM CHLORIDE 20 MEQ TAB.ER.PRT PO SCH (17:20)
[2018-09-23 19:17] VITALS: BP 125/78
[2018-09-23 20:04] VITALS: BP 122/78
[2018-09-23] MEDS: ONDANSETRON 2MG/ML, 2ML IVPush PRN (20:49)
[2018-09-23] MEDS: LORazepam 0.5MG TABLET PO PRN (22:29)
[2018-09-23 22:53] LABS: ANION GAP 7 mmol/L (5-15); CALCIUM 7.7 mg/dL (8.5-10.1); CHLORIDE 114 mmol/L (98-107); CREATININE 0.54 mg/dL (0.55-1.02)
[2018-09-24 01:18] VITALS: BP 116/72
[2018-09-24] MEDS: ONDANSETRON 2MG/ML, 2ML IVPush PRN ×5 (03:00→22:53)
[2018-09-24] MEDS: LORazepam 0.5MG TABLET PO PRN (03:09)
[2018-09-24 04:41] VITALS: BP 128/89
[2018-09-24 06:11] LABS: CHLORIDE 108 mmol/L (98-107)
[2018-09-24 06:18] LABS: ALANINE AMINOTRANSFERASE 82 U/L (12-78); ALBUMIN 3.1 g/dL (3.4-5.0); ALKALINE PHOSPHATASE 222 U/L (45-117); ANION GAP 7 mmol/L (5-15); BILIRUBIN,TOTAL 1.3 mg/dL (0.2-1.0); CALCIUM 7.8 mg/dL (8.5-10.1); CREATININE 0.48 mg/dL (0.55-1.02); TOTAL PROTEIN 7.5 g/dL (6.4-8.2)
[2018-09-24 06:26] VITALS: BP 117/79
[2018-09-24 06:42] LABS: MEAN CORPUSCULAR HEMOGLOBIN 30.5 pg (27.0-34.8); MEAN CORPUSCULAR HGB CONC 33.8 g/dL (32.4-35.8); MEAN CORPUSCULAR VOLUME 90.4 fL (80-100); MEAN PLATELET VOLUME 7.3 fL (7.4-10.4); PLATELET COUNT 88 x10^3/uL (130-400); RED BLOOD COUNT 4.23 x10^6/uL (3.82-5.3); RED CELL DISTRIBUTION WIDTH 17.2 % (9.6-15.2)
[2018-09-24 06:44] LABS: BASOPHILS # (AUTO) 0.04 x10^3/uL (0-0.1); BASOPHILS % (AUTO) 1 % (0-1); EOSINOPHILS # (AUTO) 0.13 x10^3/uL (0-0.4); EOSINOPHILS % (AUTO) 2 % (1-7); LYMPHOCYTES # (AUTO) 1.41 x10^3/uL (1-3.4); LYMPHOCYTES % (AUTO) 19 % (22-44); MD SCAN; MONOCYTES # (AUTO) 0.43 x10^3/uL (0.2-0.8); MONOCYTES % (AUTO) 6 % (2-9); NEUTROPHILS # (AUTO) 5.56 x10^3/uL (1.8-6.8); NEUTROPHILS % (AUTO) 74 % (42-75)
[2018-09-24] MEDS: POTASSIUM CHLORIDE 20 MEQ TAB.ER.PRT PO SCH ×2 (08:08→16:57)
[2018-09-24] MEDS: FOLIC ACID 1 MG TABLET PO SCH (08:08)
[2018-09-24] MEDS: MULTIVITAMIN 1 TABLET PO SCH (08:08)
[2018-09-24] MEDS: CHLORDIAZEPOXIDE 25 MG CAPSULE PO SCH ×3 (08:08→22:53)
[2018-09-24] MEDS: THIAMINE 100MG TABLET PO SCH (08:08)
[2018-09-24] MEDS ORDERED: CALCIUM CHLORIDE 13.6 MEQ in SODIUM CHLORIDE 0.9% 100 ML IV ONE (12:00)
[2018-09-24 12:10] VITALS: BP 122/81
[2018-09-24] MEDS: CALCIUM CARBONATE 500 MG TABLET PO SCH ×3 (12:27→20:30)
[2018-09-24] MEDS: SODIUM CHLORIDE 0.9% 1,000 ML IV SCH ×2 (12:27→22:53)
[2018-09-24] MEDS: LORazepam 1MG TABLET PO PRN ×4 (12:35→22:53)
[2018-09-24] MEDS ORDERED: ONDANSETRON 2MG/ML, 2ML ONE (16:53)
[2018-09-24] MEDS: ENOXAPARIN 40 MG/0.4 ML SQ SCH (16:57)
[2018-09-24] MEDS: NICOTINE 7 MG/24 HR PATCH.TD24 TD SCH (16:58)
[2018-09-24 19:46] VITALS: BP 118/82
[2018-09-25 02:00] VITALS: BP 120/86
[2018-09-25] MEDS: LORazepam 1MG TABLET PO PRN ×3 (02:40→07:55)
[2018-09-25] MEDS: ONDANSETRON 2MG/ML, 2ML IVPush PRN (05:03)
[2018-09-25 05:36] LABS: CHLORIDE 108 mmol/L (98-107)
[2018-09-25 05:42] LABS: ALANINE AMINOTRANSFERASE 69 U/L (12-78); ALKALINE PHOSPHATASE 229 U/L (45-117); ANION GAP 6 mmol/L (5-15); BILIRUBIN,TOTAL 2.1 mg/dL (0.2-1.0); CALCIUM 8.8 mg/dL (8.5-10.1); CREATININE 0.56 mg/dL (0.55-1.02); TOTAL PROTEIN 7.3 g/dL (6.4-8.2)
[2018-09-25 05:43] LABS: MEAN CORPUSCULAR HEMOGLOBIN 30.6 pg (27.0-34.8); MEAN CORPUSCULAR VOLUME 90.1 fL (80-100); RED BLOOD COUNT 4.13 x10^6/uL (3.82-5.3)
[2018-09-25 06:28] VITALS: BP 115/82
[2018-09-25 06:28] LABS: BASOPHILS # (AUTO) 0.03 x10^3/uL (0-0.1); BASOPHILS % (AUTO) 0 % (0-1); EOSINOPHILS # (AUTO) 0.19 x10^3/uL (0-0.4); EOSINOPHILS % (AUTO) 3 % (1-7); LYMPHOCYTES # (AUTO) 1.28 x10^3/uL (1-3.4); LYMPHOCYTES % (AUTO) 20 % (22-44); MD SCAN; MEAN PLATELET VOLUME 7.1 fL (7.4-10.4); MONOCYTES # (AUTO) 0.26 x10^3/uL (0.2-0.8); MONOCYTES % (AUTO) 4 % (2-9); NEUTROPHILS # (AUTO) 4.75 x10^3/uL (1.8-6.8); NEUTROPHILS % (AUTO) 73 % (42-75); PLATELET COUNT 85 x10^3/uL (130-400)
[2018-09-25] MEDS: MULTIVITAMIN 1 TABLET PO SCH (07:55)
[2018-09-25] MEDS: THIAMINE 100MG TABLET PO SCH (07:55)
[2018-09-25] MEDS: FOLIC ACID 1 MG TABLET PO SCH (07:55)
[2018-09-25] MEDS ORDERED: CHLORDIAZEPOXIDE 25 MG CAPSULE PO PRN (09:00)
[2018-09-25] MEDS ORDERED: SODIUM CHLORIDE 0.9% 1,000 ML IV SCH (12:00)
== END 2018-09-25 11:07 | disposition left against medical advice (07) | DRG 433 ==
LOC: ED 13:57 → EDIP 14:35 → 4EST 16:02
PROVIDERS: ADMIT Hospitalist; ATTEND Hospitalist
DX: K70.10 Alcoholic hepatitis without ascites (principal); E87.2 Acidosis; D68.9 Coagulation defect, unspecified; R45.851 Suicidal ideations; K70.30 Alcoholic cirrhosis of liver without ascites; E83.51 Hypocalcemia; M35.00 Sjogren syndrome, unspecified; E86.0 Dehydration; F10.129 Alcohol abuse with intoxication, unspecified; E87.6 Hypokalemia; R11.2 Nausea with vomiting, unspecified; K76.0 Fatty (change of) liver, not elsewhere classified; F17.210 Nicotine dependence, cigarettes, uncomplicated; F32.9 Major depressive disorder, single episode, unspecified; F41.9 Anxiety disorder, unspecified; G89.29 Other chronic pain; R73.9 Hyperglycemia, unspecified; R16.1 Splenomegaly, not elsewhere classified; Z87.11 Personal history of peptic ulcer disease; Z90.49 Acquired absence of other specified parts of digestive tract; Z53.21 Procedure and treatment not carried out due to patient leaving prior to being seen by health care provider
CPT/HCPCS: 36415; 99285; J7042; 71045; 76700; 80048; 80053; 80307; 81001; 82010; 83690; 83735; 84100; 84703; 85025; 85610; 87086; 93005; 96365; 96375; G0378; J1650; J2405; J3411; J3475; J3480; J2060; J7030; J7040

== ENCOUNTER 2018-10-15 20:57 | Emergency (ER) | payer MEDICAID ==
[~2018-10-15] VITALS: Ht 165.1 cm; Wt 73.0 kg
[~2018-10-15 20:57] MED LIST changes: +CEPH-368 PO; +FENT-58 TP; +LORA2TAB99 PO
[2018-10-15 21:00] VITALS: BP 110/59
--- NOTE | 2018-10-15 22:39 | NUR ---
FROM LOBBY TO ROOM AT THIS TIME
== END 2018-10-16 00:56 | disposition home or self-care (01) ==
LOC: ED 23:40
DX: S20.219A Contusion of unspecified front wall of thorax, initial encounter (principal); Z90.49 Acquired absence of other specified parts of digestive tract; V49.3XXA Car occupant (driver) (passenger) injured in unspecified nontraffic accident, initial encounter; Y93.89 Activity, other specified; Y92.89 Other specified places as the place of occurrence of the external cause; Y99.8 Other external cause status
CPT/HCPCS: 71111; 93005; 99283

== ENCOUNTER 2018-10-16 16:40 | Emergency (ER) | payer MEDICAID ==
[~2018-10-16] VITALS: Ht 165.1 cm; Wt 76.1 kg
[2018-10-16] MEDS ORDERED: MAALOX/HYOSCYAMINE/LIDOCAINE 45 ML BTL PO ONE (17:00)
[2018-10-16] MEDS ORDERED: FAMOTIDINE 20 MG TABLET PO ONE (17:00)
[2018-10-16] MEDS ORDERED: ONDANSETRON ODT 4 MG PO ONE (17:00)
[2018-10-16] MEDS ORDERED: ONDANSETRON ODT 4 MG ONE (17:12)
[2018-10-16] MEDS ORDERED: FAMOTIDINE 20 MG TABLET ONE (17:12)
[2018-10-16] MEDS ORDERED: MAALOX/HYOSCYAMINE/LIDOCAINE 45 ML BTL ONE (17:12)
[2018-10-16 17:25] LABS: BASOPHILS # (AUTO) 0.09 x10^3/uL (0-0.1); BASOPHILS % (AUTO) 1 % (0-1); EOSINOPHILS # (AUTO) 0.05 x10^3/uL (0-0.4); EOSINOPHILS % (AUTO) 0 % (1-7); LYMPHOCYTES % (AUTO) 19 % (22-44); MD NO; MEAN CORPUSCULAR HEMOGLOBIN 29.5 pg (27.0-34.8); MEAN CORPUSCULAR HGB CONC 32.2 g/dL (32.4-35.8); MEAN CORPUSCULAR VOLUME 91.8 fL (80-100); MEAN PLATELET VOLUME 7.3 fL (7.4-10.4); MONOCYTES # (AUTO) 0.32 x10^3/uL (0.2-0.8); MONOCYTES % (AUTO) 3 % (2-9); NEUTROPHILS # (AUTO) 9.23 x10^3/uL (1.8-6.8); NEUTROPHILS % (AUTO) 78 % (42-75); PLATELET COUNT 164 x10^3/uL (130-400); RED BLOOD COUNT 4.77 x10^6/uL (3.82-5.3); RED CELL DISTRIBUTION WIDTH 16.8 % (9.6-15.2)
[2018-10-16 17:34] LABS: ALBUMIN 3.4 g/dL (3.4-5.0); ANION GAP 12 mmol/L (5-15); CALCIUM 7.9 mg/dL (8.5-10.1); CHLORIDE 111 mmol/L (98-107)
[2018-10-16 17:37] LABS: ALANINE AMINOTRANSFERASE 56 U/L (12-78); ALKALINE PHOSPHATASE 262 U/L (45-117); BILIRUBIN,TOTAL 1.3 mg/dL (0.2-1.0); CREATININE 0.58 mg/dL (0.55-1.02); TOTAL PROTEIN 8.4 g/dL (6.4-8.2)
--- NOTE | 2018-10-16 18:44 | NUR ---
MOTHER JOSE DAVID CALLED INQUIRING ABOUT THE CONDITION. PER PT OK TO TALK TO MOTHER. INFORMED MOTHER THAT SHE WILL BE DISCHARGED HERE SHORTLY WITH FOLLOW UP IN OUTPATIENT.
[2018-10-16 20:01] VITALS: BP 131/83
== END 2018-10-16 20:41 | disposition home or self-care (01) ==
LOC: ED 20:19
DX: K29.20 Alcoholic gastritis without bleeding (principal); F10.220 Alcohol dependence with intoxication, uncomplicated
CPT/HCPCS: 36415; 80053; 83690; 85025; 93005; 99284; Q0162

== ENCOUNTER 2018-12-11 10:43 | Outpatient (CLI) | payer MEDICAID | END 2018-12-11 23:59 | disposition home or self-care (01) | LOC: RAD 10:43 | PROVIDERS: ATTEND Radiology Diagnostic Radiology | DX: M41.84 Other forms of scoliosis, thoracic region (principal); M25.511 Pain in right shoulder; M25.512 Pain in left shoulder | CPT/HCPCS: 72072 ==

== ENCOUNTER 2020-04-15 23:53 | Emergency (ER) | payer MEDICAID ==
[~2020-04-15] VITALS: Ht 165.1 cm; Wt 70.5 kg
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
[2020-04-16] MEDS ORDERED: HYDROcodone/APAP 5/325 TABLET ONE (00:25)
[2020-04-16] MEDS ORDERED: HYDROcodone/APAP 5/325 TABLET PO ONE (00:30)
--- NOTE | 2020-04-16 01:11 | NUR ---
REPORT RECIEVED FROM JUJU SKINNER. PT CRYING IN ROOM AND PROVIDED WARM BLANKET FOR COMFORT.
[2020-04-16 01:18] VITALS: BP 120/75
--- NOTE | 2020-04-16 01:19 | NUR ---
PT PROVIDED WITH IS AND WAS ABLE TO GET UP TO 1250 CC. ERP AT BEDSIDE TO SPEAK WITH PT ABOUT POC AT HOME.
== END 2020-04-16 01:47 | disposition home or self-care (01) ==
LOC: ED 04-16 01:10
DX: S22.32XA Fracture of one rib, left side, initial encounter for closed fracture (principal); R07.89 Other chest pain; F17.210 Nicotine dependence, cigarettes, uncomplicated; Z90.49 Acquired absence of other specified parts of digestive tract; X58.XXXA Exposure to other specified factors, initial encounter; Y93.89 Activity, other specified; Y92.89 Other specified places as the place of occurrence of the external cause; Y99.8 Other external cause status
CPT/HCPCS: 99283; 99406